=== PATIENT | male | born 1985 | race Asian ===

== ENCOUNTER 2019-03-02 04:50 | Emergency (ER) | payer SELFPAY ==
[~2019-03-02] VITALS: Ht 182.9 cm; Wt 127.0 kg
[2019-03-02 04:53] VITALS: BP 149/96
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
--- NOTE | 2019-03-02 04:53 | NUR ---
PT AMBULATED TO BED #2
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
[2019-03-02] MEDS ORDERED: NEOMYCIN/POLYMYXIN/BACITRACIN OIN 15 GM TUBE TP ONE (05:10)
[2019-03-02] MEDS ORDERED: AMOXIL/CLAVULANATE 875/125 MG 1 TAB PO ONE (05:10)
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
[2019-03-02 05:16] VITALS: BP 149/96
[2019-03-02] MEDS ORDERED: AMOXIL/CLAVULANATE 875/125 MG 1 TAB ONE (05:38)
[2019-03-02] MEDS ORDERED: NEOMYCIN/POLYMYXIN/BACITRACIN 0.9 GM/1 PKT TP ONE (05:38)
[2019-03-02] MEDS ORDERED: LIDOCAINE 1% 500 MG/50 ML VIAL INJ SCH (05:45)
[2019-03-02] MEDS ORDERED: LIDOCAINE MPF 1% - 5 mL VIAL 5 ML ONE (05:49)
== END 2019-03-02 06:42 | disposition home or self-care (01) ==
LOC: MED 04:50
DX: S51.851A Open bite of right forearm, initial encounter (principal); W50.3XXA Accidental bite by another person, initial encounter; Y93.89 Activity, other specified; Y92.89 Other specified places as the place of occurrence of the external cause; Y99.8 Other external cause status
CPT/HCPCS: 90471; 90715; 99283; J2001